=== PATIENT | female | born 2000 | race Caucasian/White ===

== ENCOUNTER 2024-04-24 12:25 | Outpatient (CLI) | payer OTHER, SELFPAY ==
--- NOTE | ~2024-04-24 | US_ITS ---
EXAMINATION: US thyroid DATE: 04/24/2024 16:11 INDICATION: Hyperthyroidism TECHNIQUE: Multiple ultrasound images of the thyroid were obtained. COMPARISON: None. FINDINGS: The right thyroid lobe measures 3.8 x 1.7 x 1.5 cm. The left thyroid lobe measures 4.0 x 1.5 x 1.7 c m. Thyroid isthmus measures 5 mm in thickness. No discrete nodules identified. There is normal echote xture, echogenicity and vascular flow throughout the thyroid gland. IMPRESSION: 1. Normal thyroid ultrasound. Reviewed, dictated and finalized at location B. PACKAGER
[2024-04-24 13:04] LABS: Hematocrit 40.1 % (37.0-47.0); Hemoglobin 13.9 g/dL (12.0-15.0); Mean Corpuscular HGB Conc 34.7 g/dl (32-36); Mean Corpuscular Hemoglobin 31.3 pg (26-34); Mean Corpuscular Volume 90.3 fl (80-100); Mean Platelet Volume 10.3 fl (7.4-10.4); Platelet Count Result 236 k/mm3 (150-375); Red Blood Count 4.44 M/mm3 (4.2-5.4); Red Cell Distribution Width 11.4 % (11.5-14.5); White Blood Count 5.9 K/mm3 (4.5-10.0)
[2024-04-24 13:30] LABS: Alanine Aminotransferase 26 U/L (6-35); Albumin Level 4.1 g/dL (3.5-5.1); Alkaline Phosphatase 46 U/L (38-126); Anion Gap 0 mmol/L (4-12); Aspartate Amino Transferase 26 U/L (14-36); Bilirubin,Total 0.5 mg/dL (0.2-1.3); Blood Urea Nitrogen 14 mg/dL (7-17); Calcium 8.8 mg/dL (8.4-10.2); Carbon Dioxide 28 mmol/L (22-30); Chloride 108 mmol/L (98-107); Estimated Glomerular Filt Rate > 60; Glucose 85 mg/dL (65-110); Potassium 3.9 mmol/L (3.4-5.0); Sodium 136 mmol/L (137-145)
[2024-04-24 13:45] LABS: Free T4 Free Thyroxine 1.16 ng/dL (0.78-2.19)
[2024-04-25 11:32] LABS: DHEA-Sulfate 267 mcg/dL (14-349); LH 3.1 mIU/mL; Prolactin 6.3 ng/mL
[2024-04-29 09:28] LABS: Thyroid Peroxidase Antibodies 1 IU/mL (<9)
[2024-04-30 05:09] LABS: Testosterone Total 19 ng/dL (2-45)
== END 2024-04-24 12:26 | disposition home or self-care (01) ==
LOC: ANHIMG 12:26
PROVIDERS: PCP Family Medicine; Visit Provider Internal Medicine
DX: R79.89 Other specified abnormal findings of blood chemistry (principal)
CPT/HCPCS: 36415; 76536; 80053; 82627; 82672; 83001; 83002; 83498; 83519; 84146; 84403; 84439; 84443; 84445; 85027

== ENCOUNTER 2024-05-20 13:53 | Outpatient (CLI) | payer OTHER, SELFPAY ==
--- NOTE | ~2024-05-20 | NM_ITS ---
EXAMINATION: NM thyroid scan w uptake DATE: 05/21/2024 14:25 INDICATION: Parathyroid disc and COMPARISON: Ultrasound dated 04/24/2024 TECHNIQUE: 356 microcuries [id number] was administered orally in capsule form. Scintigraphic images of th e thyroid gland were obtained at 24 hours. Thyroid uptake was calculated by the technologist. FINDINGS: The thyroid uptake is 27% (normal 10-30%), with the right lobe measuring 17% uptake and the left 11%. There is no focal area of decreased or increased activity to suggest hypofunctioning or hyperfunctio argenis nodule. IMPRESSION: 1. Normal thyroid scintigraphy and 24-hour iodine uptake. Reviewed, dictated and finalized at location B. MACHINIST
--- OUTSIDE RECORDS SUMMARY | 2024-05-20 14:40 | XMS_ITS | Clinical Summary ---
Author Organization [facility] Address [address] [place] [id number] Care Team Providers Care Woodworking Machinist Name Role Phone Susi Beaver NP Primary Care Provider [phone] Allergies No known active allergies Medications hydrOXYzine (ATARAX) 25 mg tablet Take 1 tablet (25 mg total) by mouth 3 (three) times a day as needed 04/24/2023 Active mirtazapine (REMERON) 7.5 mg tablet Take 1 tablet (7.5 mg total) by mouth nightly 04/24/[address] (PROTONIX) 40 mg EC tablet Take 1 tablet (40 mg total) by mouth daily 90 tablet 09/20/[address] (PROTONIX) 20 mg EC tablet Take 1 tablet (20 mg total) by mouth daily 90 tablet 3 09/20/2023 Active simethicone (MYLICON) 125 mg chewable tablet Take 1 tablet (125 mg total) by mouth 4 (four) times a day as needed (cramping/bl oating/gas/n ausea) 120 tablet 3 09/20/2023 Active Active Problems Problem Noted Date Diagnosed Date Chronic superficial gastritis without bleeding 0 05/23/2023 Family history of colon cancer in father 024 History of colonoscopy with polypectomy 05/23/19 24 Gastroesophageal reflux disease 10/20/2020 Upper abdominal pain 10/20/2020 Seasonal allergies 10/20/2020 Abdominal cramping 10/20/2020 Immunizations Name Administration Dates Next Due DTaP 09/11/2005, 2,2000,2000,0 2000 Hep B, Adolescent or Pediatric 2000,2000,2000 HiB 05/23/2001,2000,2000 ,2000 IPV 09/11/2005,2000,2000 ,2000 MMR 09/11/2005,05/23/2001 Meningococcal MCV4P (Menactra) 11/13/2017,2014 Tdap 10/16/2011 Varicella 10/16/2011,10/28/2003 Family History Medical History Relation Name Comments colorectal cancer Father Liver cancer Other grandfather Relation Name Status Comments Father Alive Other grandfather Social History Tobacco Use Types Packs/Day Years Used Date Smoking Tobacco: Never Tobacco Cessation:Counseling Given: Not Answered AUDIT-C Answer Date Recorded Q1: How often do you have a drink containing alc ohol? 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 Gender Identity Not on file Sexual Orientation Not on file Obstetrics History Last Filed Vital Signs Vital Sign Reading Time Taken Comments Blood Pressure 97/64 09/20/2023 3:08 PM CDT Pulse 88 09/20/2023 3:08 PM CDT Temperature 36.9 ??C (98.5 ??F) 11/30/2020 3:25 PM CD T Respiratory Rate 18 05/23/2023 1:13 PM WET ROLLER Oxygen Saturation 99% 09/20/2023 3:08 PM CDT Inhaled Oxygen Concentration - - Weight 59.9 kg (132 lb) 09/20/2023 3:08 PM CDT Height 157.5 cm (5' 2 ) 09/20/2023 3:08 PM CDT Body Mass Index 24.14 09/20/2023 3:08 PM CDT Plan of Treatment Health Maintenance Due Date Last Done Comments Cervical Cancer Screening 2000 Depression Screening 2000 Hepatitis C Screening 2000 HPV Vaccines (1 - 3-dose series) 02/22/2015 Regular Well Visit/Exam 18-64 02/22/2018 DTaP/Tdap/Td Vaccine (7 - Td or Tdap) 10/15/2021 10/16/2011, 09/11/2005, 05/23/2001, Additional history exists Influenza Vaccine (#1) 2023 Varicella Vaccines Completed 10/16/2011, 10/28/2003 Pneumococcal vaccine <65 Aged Out No longer eligible based on patient's age to complete this topic Insurance [facility] Advance Directives For more information, please contact: [phone] * Full Code (Latest Code Status on File) Date Activated Date Inactivated Comments 11/30/2020 12:37 PM 11/30/2020 7:50 PM * Full Code Date Activated Date Inactivated Comments 11/30/2020 12:37 PM 11/30/2020 12:37 PM Care Teams Woodworking Machinist Relationship Specialty Start Date End Date Susi Beaver NP [address] [place] [address] PCP - General Nurse Practitioner 10/17/20
--- OUTSIDE RECORDS SUMMARY | 2024-05-20 14:40 | XMS_ITS | Referral Summary ---
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 Gender Identity Not on file Sexual Orientation Not on file Last Filed Vital Signs Vital Sign Reading Time Taken Comments Blood Pressure 97/64 09/20/2023 3:08 PM CDT Pulse 88 09/20/2023 3:08 PM CDT Temperature 36.9 ??C (98.5 ??F) 11/30/2020 3:25 PM CD T Respiratory Rate 18 05/23/2023 1:13 PM PHOTOGRAPHIC REPRODUCTION TECHNICIAN Oxygen Saturation 99% 09/20/2023 3:08 PM CDT Inhaled Oxygen Concentration - - Weight 59.9 kg (132 lb) 09/20/2023 3:08 PM CDT Height 157.5 cm (5' 2 ) 09/20/2023 3:08 PM CDT Body Mass Index 24.14 09/20/2023 3:08 PM CDT Plan of Treatment Not on file Insurance [facility] Advance Directives For more information, please contact: [phone] * Full Code (Latest Code Status on File) Date Activated Date Inactivated Comments 11/30/2020 12:37 PM 11/30/2020 7:50 PM * Full Code Date Activated Date Inactivated Comments 11/30/2020 12:37 PM 11/30/2020 12:37 PM Care Teams Shake Out Worker Relationship Specialty Start Date End Date Susi Beaver NP [address] [id number] PCP - General Nurse Practitioner 10/17/20
--- OUTSIDE RECORDS SUMMARY | 2024-05-20 14:40 | XMS_ITS | Encounter Summary ---
Author Organization [facility] Address [address] [place] [address]. 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
--- OUTSIDE RECORDS SUMMARY | 2024-05-20 14:40 | XMS_ITS | Clinical Summary ---
Author Organization [facility] Address [facility] [place] [address] [place] [address] Care Team Providers Care Tenon Machine Operator Name Role Phone Lavon James MD Primary Care Provider [phone] Allergies No known active allergies Medications magnesium-alumin um-simethicone 200-200-20 MG/5ML suspension Take by mouth every 6 (six) hours as needed for Indigestion . Active omeprazole 20 MG capsule Take 20 mg by mouth daily as needed. Active famotidine 20 MG tablet Take 20 mg by mouth daily as needed for Heartburn. Active ranitidine 75 MG Tab Take 1 tablet by mouth as needed. Active sucralfate 1 G tablet Take 1 tablet (1 g total) by mouth 4 (four) times daily. 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 Gender Identity Not on file Sexual Orientation Not on file Last Filed Vital Signs Vital Sign Reading Time Taken Comments Blood Pressure 110/58 01/25/2019 6:45 PM CDT Pulse 62 01/25/2019 6:45 PM CDT Temperature 37.7 ??C (99.9 ??F) 01/25/2019 3:32 PM CD T Respiratory Rate 18 01/25/2019 6:45 PM CDT Oxygen Saturation 100% 01/25/2019 6:45 PM CDT Inhaled Oxygen Concentration - - Weight 61.2 kg (135 lb) 01/25/2019 3:32 PM CDT Height 157.5 cm (5' 2 ) 01/25/2019 3:32 PM CDT Body Mass Index 24.69 01/25/2019 3:32 PM CDT Plan of Treatment Health Maintenance Due Date Last Done Comments Cervical Cancer Screening Pa p Smear (Age 21 to 29) Every 3 Years 2000 Cervical Cancer Screening 2000 Annual Physical 02/22/2003 HPV Vaccines (1 - 3-dose series) 02/22/2015 Hepatitis C 02/22/2018 DTaP, Tdap and Td Vaccines ( 1 - Tdap) 02/22/2019 Hepatitis B Vaccines (1 of 3 - 19+ 3-dose series) 02/22/2019 COVID-19 Vaccine ( - 2023-2 5 season) 2023 Influenza Adult (#1) 2024 Meningococcal B Vaccine Aged Out No l onger eligible based on patient's age to complete this topic Meningococcal Vaccine Aged Out No judith jennifer eligible based on patient's age to complete this topic Pneumococcal Vaccine: Pediat rics (0 to 5 Years) and At-Risk Patients (6 to 64 Years) Aged Out No longer eligible b ased on patient's age to complete this topic RSV Immunizations Under 20 Months Aged Out No longer eligible based on patient's age to complete this topic Insurance [facility] Care Teams Tenon Machine Operator Relationship Specialty Start Date End Date Lavon James MD [address] [place] [phone] PCP - General FAMILY PRACTICE 01/25/19
== END 2024-05-20 13:54 | disposition home or self-care (01) ==
PROVIDERS: PCP Family Medicine; Visit Provider Internal Medicine
DX: R79.89 Other specified abnormal findings of blood chemistry (principal)
CPT/HCPCS: 78014; A9516

== ENCOUNTER 2024-06-23 11:19 | Outpatient (CLI) | payer OTHER, SELFPAY ==
[2024-06-23 13:00] LABS: Free T4 Free Thyroxine 1.07 ng/dL (0.78-2.19)
== END 2024-06-23 11:20 | disposition home or self-care (01) ==
LOC: ANHLAB 11:21
PROVIDERS: Visit Provider Internal Medicine
DX: R79.89 Other specified abnormal findings of blood chemistry (principal)
CPT/HCPCS: 36415; 84439; 84443

== ENCOUNTER 2024-12-24 12:21 | Outpatient (CLI) | payer OTHER, SELFPAY ==
--- OUTSIDE RECORDS SUMMARY | 2024-12-24 12:37 | XMS_ITS | Encounter Summary ---
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
--- OUTSIDE RECORDS SUMMARY | 2024-12-24 12:37 | XMS_ITS | Clinical Summary ---
Author Organization [facility] Address [address] [place] [address] Care Team Providers Care Tub Operator Name Role Phone Susi Beaver NP Primary Care Provider [phone] Allergies No known active allergies Medications hydrOXYzine (ATARAX) 25 mg tablet Take 1 tablet (25 mg total) by mouth 3 (three) times a day as needed 4 Active famotidine (PEPCID) 20 mg tablet Take 1 tablet (20 mg total) by mouth 2 (two) times a day as needed for indigestion or heartburn 180 tablet 3 5 Active Additional Information Patient not taking.Reported on 09/28/2024 oxyBUTYnin XL (DITROPAN-XL) 5 mg 24 hr tablet Take 1 tablet (5 mg total) by mouth daily Active esomeprazole DR (NexIUM) 40 mg capsule Take 1 capsule (40 mg total) by mouth daily before breakfast 90 capsule 3 5 09/29/19 26 Active simethicone (GAS-X) 125 mg capsule Take one pill up to 4 times daily as needed for problematic cramping, bloating, gas, or nausea issues. 120 capsule 3 5 Active Active Problems Problem Noted Date Diagnosed Date Chronic superficial gastritis without bleeding 0 05/23/2023 Family history of colon cancer in father 024 History of colonoscopy with polypectomy 05/23/19 24 Gastroesophageal reflux disease 10/20/2020 Upper abdominal pain 10/20/2020 Seasonal allergies 10/20/2020 Abdominal cramping 10/20/2020 Encounters Date Type Department Care Team Description 10/22/2024 Telephone [facility] G[facility]enterology at [address] [place] [address] Haylee Quiroga LPN 10/15/2024 7:07 AM CDT - 10/15/2024 11:59 PM CDT Hospital Encounter [facility] [address] [place] [address] Rad, Amh Fluoro Chronic superficial gastritis without bleeding; Gastroesophageal reflux disease with esophagitis without hemorrhage; Upper abdominal pain; Nausea without vomiting Discharge Disposition: Discharge to home or self care 10/15/2024 7:07 AM CDT - 10/15/2024 11:59 PM CDT Hospital Encounter [facility] [address] [place] [address] Gastroesophageal reflux disease with esophagitis without hemorrhage; Upper abdominal pain; Nausea without vomiting Discharge Disposition: Discharge to home or self care 10/15/2024 Telephone [facility] at [address], [place] [address] Jaime Kerr MA 10/02/2024 Results Follow-Up [facility] Gastroenterology at [address] [place] [address] Chato Mathis NP Celiac reflex panel, Tissue transglutaminase IgA (TGG-IgA Ab), FL Esophagram, Double Contrast, US RUQ 09/28/2024 10:30 AM CDT Lab [address] Chronic superficial gastritis without bleeding; Gastroesophageal reflux disease with esophagitis without hemorrhage; Upper abdominal pain; Nausea without vomiting; Diarrhea, unspecified type 09/28/2024 9:30 AM CDT Office Visit [facility] Gastroenterology at [address] [place] [address] Chato Mathis NP Chronic superficial gastritis without bleeding (Primary Dx); Gastroesophageal reflux disease with esophagitis without hemorrhage; Family history of colon cancer in father; History of colonoscopy with polypectomy; Upper abdominal pain; Nausea without vomiting; Diarrhea, unspecified type 09/28/2024 Telephone [facility] Gastroenterology at [address] [place] [phone] Jaime Kerr MA 09/25/2024 Telephone [facility] Gastroenterology at [address] [place] [address] Jaime Kerr MA from Last 3 Months Immunizations Immunization Administration Dates Next Due DTaP 09/11/2005, 2,2000,2000,0 [...] drink containing alc ohol? Monthly or less 09/28/2024 Q2: How many drinks containi ng alcohol do you have on a typical day when you are drinking? 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 Gender Identity Not on file Sexual Orientation Not on file Obstetrics History Last Filed Vital Signs Vital Sign Reading Time Taken Comments Blood Pressure 100/67 09/28/2024 9:40 AM CDT Pulse 75 09/28/2024 9:40 AM CDT Temperature 36.9 C (98.5 F) 11/30/2020 3:25 PM CDT Respiratory Rate 18 05/23/2023 1:13 PM SALES SUPPORT SPECIALIST Oxygen Saturation 99% 09/28/2024 9:40 AM CDT Inhaled Oxygen Concentration - - Weight 59.7 kg (131 lb 11.2 oz) 09/28/2024 9:40 AM CDT Height 157.5 cm (5' 2) 09/28/2024 9:40 AM CDT Body Mass Index 24.09 09/28/2024 9:40 AM CDT Plan of Treatment Health Maintenance Due Date Last Done Comments Cervical Cancer Screening 2000 Depression Screening 2000 Hepatitis C Screening 2000 HPV Vaccines (1 - 3-dose series) 02/22/2015 Regular Well Visit/Exam 18-64 02/22/2018 DTaP/Tdap/Td Vaccine (7 - Td or Tdap) 10/15/2021 10/16/2011, 09/11/2005, 05/23/2001, Additional history exists Influenza Vaccine (#1) 2024 Hepatitis B Screening Completed 2000 , 2000, 2000 Varicella Vaccines Completed 10/16/2011, 10/28/2003 Pneumococcal vaccine <65 Aged Out No longer eligible based on patient's age to complete this topic Procedures Procedure Name Priority Date/Time Associated Diagnosis Comments FL ESOPHAGRAM, DOUBLE CONTRAST Schedule Routine, Read Routine (OP Routine) 10/15/2024 8:15 AM CDT Chronic superficial gastritis without bleeding Gastroesophageal reflux disease with esophagitis without hemorrhage Upper abdominal pain Nausea without vomiting US RUQ Schedule YI, Read Routine (Patient lives out of area) 10/15/2024 8:04 AM CDT Gastroesophageal reflux disease with esophagitis without hemorrhage Upper abdominal pain Nausea without vomiting TISSUE TRANSGLUTAMINASE, IGA Routine 09/28/2024 10:29 AM CDT CELIAC REFLEX PANEL Routine 09/28/2024 10:29 AM CDT Chronic superficial gastritis without bleeding Gastroesophageal reflux disease with esophagitis without hemorrhage Upper abdominal pain Nausea without vomiting Diarrhea, unspecified type from Last 3 Months Results * FL Esophagram, Double Contrast (10/15/2024 8:15 AM CDT) Anatomical Region Laterality Modality Body N/A Radio Fluoroscop y 10/15/2024 2:38 PM CDT Narrative 10/15/2024 2:39 PM CDT EXAM DESCRIPTION: FL ESOPHAGRAM BARIUM SWALLOW TO STOMACH, DOUBLE CONTRAST REASON FOR STUDY: Significant GERD. How significant is her GERD on this study? Please also check washerette machine operator images and comment on fecal load as I am suspicious she may be maintaining a high fecal load, How significant is GERD? Any concerns for hiatal hernia or esophageal dysmotility? RADIATION DOSE: Dose: 584.67 uGym2 Dose Area Product (DAP) TECHNIQUE: Under fluoroscopic guidance, patient ingested effervescent granules followed by thick and thin barium. COMPARISON: None FINDINGS: ESOPHAGEAL MOTILITY: There is grossly normal esophageal peristalsis without definite evidence of spasm. ESOPHAGEAL MUCOSA: The esophageal mucosa appears grossly unremarkable without definite evidence of focal ulceration, dominant stricture, or mass. GASTRO-ESOPHAGEAL JUNCTION: There is no significant hiatal hernia. There is no significant reflux elicited with provocative maneuvers. NON-GI TRACT STRUCTURES: No significant finding. OTHER: No other significant finding. IMPRESSION: 1. Grossly unremarkable esophagram. No definite evidence of a dominant esophageal stricture, focal ulceration, or mass. THIS IS AN ELECTRONICALLY VERIFIED FINAL REPORT 10/15/2024 2:39 PM - Electronically signed by Yoel Winston D.O. PS: PS Report ID: [id number] Reading Location: [place] [address] Procedure Note Yoel Winston DO - 10/15/2024 EXAM DESCRIPTION: FL ESOPHAGRAM BARIUM SWALLOW TO STOMACH, DOUBLECONTRAST REASON FOR STUDY: Significant GERD. How significant is her GERD on this study? Please also check washerette machine operator images and comment on fecal load as I am suspicious she may be maintaining a high fecal load, How significant isGERD? Any concerns for hiatal hernia or esophageal dysmotility? RADIATION DOSE: Dose: 584.67 uGym2 Dose Area Product (DAP) TECHNIQUE: Under fluoroscopic guidance, patient ingested effervescentgranules followed by thick and thin barium. COMPARISON: None FINDINGS: ESOPHAGEAL MOTILITY: There is grossly normal esophageal peristalsiswithout definite evidence of spasm. ESOPHAGEAL MUCOSA: The esophageal mucosa appears grossly unremarkable without definite evidence of focal ulceration, dominant stricture, ormass. GASTRO-ESOPHAGEAL JUNCTION: There is no significant hiatal hernia.There is no significant reflux elicited with provocative maneuvers. NON-GI TRACT STRUCTURES: No significant finding. OTHER: No other significant finding. IMPRESSION: 1. Grossly unremarkable esophagram. No definite evidence of a dominant esophageal stricture, focal ulceration, or mass. THIS IS AN ELECTRONICALLY VERIFIED FINAL REPORT 10/15/2024 2:39 PM - Electronically signed by Yoel Winston D.O. PS: PS Report ID: [id number] Reading Location: [place] [address] us Chato Kyle Bilderback MACHINE PECAN PICKER IMG FLUOROSCOPY PRO CEDURES Final Result * US RUQ (10/15/2024 8:04 AM CDT) Anatomical Region Laterality Modality Abdomen N/A Ultrasound 10/15/2024 2:39 PM CDT Narrative 10/15/2024 2:40 PM CDT EXAM DESCRIPTION: US RUQ REASON FOR STUDY: Having abdominal pain, nausea, and GERD. Evaluate gallbladder health TECHNIQUE: Ultrasound of the right upper quadrant of the abdomen was performed with grayscale and color doppler. COMPARISON: None FINDINGS: PANCREAS: Visualized portions of the pancreas are within normal limits. Portions of the pancreatic body and tail are obscured due to bowel gas. LIVER: The liver is grossly normal in echogenicity. There is no definite sonographic evidence of focal hepatic lesion. There is documentation of hepatopetal flow in the portal vein. GALLBLADDER: The gallbladder appears grossly unremarkable without definite evidence of cholelithiasis. The gallbladder wall measures 0.1 cm in thickness. There is no definite sonographic evidence of pericholecystic fluid. There is a negative sonographic Weathers's sign. BILIARY: There is no intrahepatic or extrahepatic biliary ductal dilatation. Common bile duct measures 0.4 in diameter. RIGHT KIDNEY: Normal size. Normal echogenicity. No solid mass or cyst. No hydronephrosis. Measures 10.8 x 5.1 x 4.6 cm. OTHER: No other significant findings. IMPRESSION: 1. Grossly unremarkable right upper quadrant abdominal ultrasound. No definite sonographic evidence of cholecystitis or cholelithiasis. THIS IS AN ELECTRONICALLY VERIFIED FINAL REPORT 10/15/2024 2:40 PM - Electronically signed by Yoel Winston D.O. PS: PS Report ID: [id number] Reading Location: [id number] Procedure Note Yoel Winston, DO - 10/15/2024 EXAM DESCRIPTION: US RUQ REASON FOR STUDY: Having abdominal pain, nausea, and GERD. Evaluate gallbladder health TECHNIQUE: Ultrasound of the right upper quadrant of the abdomen wasperformed with grayscale and color doppler. COMPARISON: None FINDINGS: PANCREAS: Visualized portions of the pancreas are within normal limits. Portions of the pancreatic body and tail are obscured due to bowel gas. LIVER: The liver is grossly normal in echogenicity. There is nodefinite sonographic evidence of focal hepatic lesion. There is documentation of hepatopetal flow in the portal vein. GALLBLADDER: The gallbladder appears grossly unremarkable withoutdefinite evidence of cholelithiasis. The gallbladder wall measures 0.1 cm in thickness. There is no definite sonographic evidence of pericholecystic fluid. There is a negative sonographic Weathers's sign. BILIARY: There is no intrahepatic or extrahepatic biliary ductaldilatation. Common bile duct measures 0.4 in diameter. RIGHT KIDNEY: Normal size. Normal echogenicity. No solid mass or cyst.No hydronephrosis. Measures 10.8 x 5.1 x 4.6 cm. OTHER: No other significant findings. IMPRESSION: 1. Grossly unremarkable right upper quadrant abdominal ultrasound. No definite sonographic evidence of cholecystitis or cholelithiasis. THIS IS AN ELECTRONICALLY VERIFIED FINAL REPORT 10/15/2024 2:40 PM - Electronically signed by Yoel Winston D.O. PS: PS Report ID: [id number] Reading Location: [id number] us Chato Anabella Bilderback MACHINE PECAN PICKER IMG US PROCEDURES F inal Result * Celiac reflex panel (09/28/2024 10:29 AM CDT) IgA 98 61 - 356 mg/dL [place] ref Lab Celiac disease interpretation See Comment HUA SARGENT ([place]) Comment: See Comment: Negative serology. Celiac disease unlikely. However, approximately 10% of patients with celiac disease are seronegative. Also, patients who are already adhering to a gluten-free diet may be seronegative. If celiac disease is highly clinically suspected, consider HLA-DQ typing. Test Performed by: [place] [address] Veterinary Medicine Scientist: Elizabeth Bernal Ph.D.; CLIA# [id number] Blood 09/28/2024 10:2 9 AM CDT 09/28/2024 1:22 PM CDT Chato aMthis LAB BLOOD ORDERABLE S Final Result Performing Organization Address City/[facility] Co de Phone Number HUA SARGENT ([place]) 1 [facility] Department [place] [address] [facility] * Tissue transglutaminase IgA (TGG-IgA Ab) (09/28/2024 10:29 AM CDT) TTG ab, IgA 1.3 <4.0 (Negative) units/mL Comment: Test Performed by: [place] [address] Veterinary Medicine Scientist: Elizabeth Bernal Ph.D.; CLIA# [id number] Interpretive data Negative: <15 units/mL Positive: > or equal to 15 units/mL Current interpretive data was last revised on 2016. Testing performed by: [facility], [address] [place] [address] Blood 09/28/2024 10:2 9 AM CDT 09/28/2024 1:22 PM CDT Chato Mathis MACHINE PECAN PICKER LAB BLOOD ORDERABLE S Final Result [facility] [place] [address] from Last [address] Insurance [facility] Member Subscriber Plan / Payer (Ef fective 2020-Present) Name:Malinda Cortez R Relation to Subscriber:Self Name:Malinda Cortez R Payer ID:[id number] (NAIC) Group ID:[id number] Type:MEDICAID [id number] OTHER Address: [address] [place], [place] [id number] [place] [address] [facility] Advance Directives For more information, please contact: [phone] * Full Code (Latest Code Status on File) Date Activated Date Inactivated Comments 11/30/2020 12:37 PM 11/30/2020 7:50 PM * Full Code Date Activated Date Inactivated Comments 11/30/2020 12:37 PM 11/30/2020 12:37 PM Care Teams Tub Operator Relationship Specialty Start Date End Date Susi Beaver NP [address] [place] [address] PCP - General Nurse Practitioner 10/17/20
--- OUTSIDE RECORDS SUMMARY | 2024-12-24 12:37 | XMS_ITS | Clinical Summary ---
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 Gender Identity Not on file Sexual Orientation Not on file Last Filed Vital Signs Vital Sign Reading Time Taken Comments Blood Pressure 110/58 01/25/2019 6:45 PM CDT Pulse 62 01/25/2019 6:45 PM CDT Temperature 37.7 C (99.9 F) 01/25/2019 3:32 PM CDT Respiratory Rate 18 01/25/2019 6:45 PM CDT Oxygen Saturation 100% 01/25/2019 6:45 PM CDT Inhaled Oxygen Concentration - - Weight 61.2 kg (135 lb) 01/25/2019 3:32 PM CDT Height 157.5 cm (5' 2) 01/25/2019 3:32 PM CDT Body Mass Index [...] Vaccine ( - 2023-2 5 season) 2023 Meningococcal B Vaccine Aged Out No l onger eligible based on patient's age to complete this topic Meningococcal Vaccine Aged Out No judith jennifer eligible based on patient's age to complete this topic Pneumococcal Vaccine: Pediat rics (0 to 5 Years) and At-Risk Patients (6 to 49 Years) Aged Out No longer eligible b ased on patient's age to complete this topic RSV Immunizations Under 20 Months Aged Out No longer eligible based on patient's age to complete this topic Insurance [place] Care Teams Price Analyst Relationship Specialty Start Date End Date Lavon James MD [address] [place] [phone] PCP - General FAMILY PRACTICE 01/25/19
[2024-12-24 13:49] LABS: Free T4 Free Thyroxine 0.96 ng/dL (0.78-2.19)
[2024-12-24 13:58] LABS: Thyroid Stimulating Hormone 0.243 uIU/mL (0.465-4.680); Total Triiodothyronine (T3) 1.09 NG/ML (0.82-1.58)
== END 2024-12-24 12:22 | disposition home or self-care (01) ==
LOC: ANHLAB 12:23
PROVIDERS: PCP Nurse Practitioner Family; Visit Provider Internal Medicine
DX: R79.89 Other specified abnormal findings of blood chemistry (principal); K21.9 Gastro-esophageal reflux disease without esophagitis
CPT/HCPCS: 36415; 83520; 84439; 84443; 84445; 84480